=== PATIENT | female | born 1995 | race Caucasian/White ===

== ENCOUNTER 2019-07-30 11:19 | Emergency (ER) | payer BC, OTHER ==
[2019-07-30] MEDS ORDERED: NIFEdipine 10 MG CAP ONE (12:08)
[2019-07-30] MEDS ORDERED: cloNIDine HCl 0.1 MG TAB ONE (12:08)
[2019-07-30] MEDS ORDERED: ONDANSETRON 4 MG/2 ML VIAL ONE (12:08)
[2019-07-30] MEDS ORDERED: NA CHLORIDE 0.9% 500 ML ONE (12:08)
[2019-07-30 12:52] LABS: Absolute Lymphocytes (CBC) 1.2 K/uL (0.7-4.9); RBC Red Blood Cell Count 4.13 M/uL (3.86-4.86)
[2019-07-30] MEDS ORDERED: METOCLOPRAMIDE 10 MG/2mL INJ ONE (12:53)
[2019-07-30 12:56] LABS: Protime INR 1.01
[2019-07-30 12:58] LABS: Basophils % 0.6 % (0-1.3); Hematocrit 35.5 % (36.0-45.0); Lymphocytes % 7.1 % (15.3-44.8); MPV 8.5 fL (7.6-11.3)
[2019-07-30 13:13] LABS: ALT/SGPT 15 U/L (12-78); AST/SGOT 24 U/L (15-37); Albumin 4.4 g/dL (3.4-5.0); Alkaline Phosphatase 41 U/L (45-117); BUN Blood Urea Nitrogen 32 mg/dL (7-18); Bicarbonate 26 mmol/L (21-32); Bilirubin Direct 0.2 mg/dL (0-0.2); Bilirubin Total 0.6 mg/dL (0.2-1.0); Glucose Level 134 mg/dL (74-106); Potassium 3.6 mmol/L (3.5-5.1); Protein, Total 8.3 g/dL (6.4-8.2); Sodium Level 139 mmol/L (136-145)
--- NOTE | 2019-07-30 14:19 | RAD REPORT ---
EXAM DESCRIPTION: CT - Head Brain Wo Cont - 07/30/2019 2:05 pm CLINICAL HISTORY: CONFUSED Headache, drowsiness COMPARISON: No comparisonsNo comparisonsNo comparisons TECHNIQUE: All CT scans are performed using dose optimization technique as appropriate and may inclu de automated exposure control or mA/KV adjustment according to patient size. FINDINGS: Acute right thalamic hemorrhage is present measuring 26 x 18 mm.Moderate acute hemorrhage is seen extending into the ventricular system.Right to left midline shift of 6-7 mm is present. Dilat ation of the temporal horns of both ventricles suggests early hydrocephalus. Basal cisterns are also attenuated/tight. The paranasal sinuses and mastoids are clear. The calvarium is intact. IMPRESSION: Acute thalamic hemorrhage on the right (26 x 18 mm). Hemorrhage is seen extending throug hout the ventricular system with early findings of hydrocephalus. Right to left midline shift of 6-7 mm noted. The findings were discussed with CLIFF Kimbrough in the ER on 07/30/2019 at 2:15 p.m. by teleph one.
--- NOTE | 2019-07-30 14:22 | EDPHYS ---
Physician Documentation [facility] Name: Yadira Alvarez Age: 24 yrs Sex: Female : 1995 Arrival Date: 07/30/2019 Time: 11:21 Bed 8 Private MD: ED Physician Jaquan Alba HPI: 07/30 12:50 This 24 yrs old Female presents to ER via Wheelchair with complaints of kdr Passed Out Prior To Arrival. 12:50 The patient has experienced near-syncope, almost passed out, felt generally weak. kdr Onset: The symptoms/episode began/occurred suddenly, just prior to arrival, It is reported that the patient may have been intoxicated last evening by EMS. Family reports that the patient had been up and awake this morning and had gone out to breakfast. After which, she had a near syncopal episode. Now she is somnolent but responds to questions appropriately. Duration: This was a single episode. Context: the episode(s) was witnessed, by a bystander, by family, occurred at home, occurred while the patient was at rest. Associated injury: The patient did not suffer any apparent associated injury. Associated signs and symptoms: Pertinent positives: headache. Current symptoms: decreased level of consciousness, is arousable but tired. The patient has not experienced similar symptoms in the past. It is unknown whether or not the patient has recently seen a physician. The patient is a kidney transplant patient and does not report any recent complications.. Historical: - Allergies: 14:21 Zithromax; jl7 - Home Meds: 14:21 nifedipine 60 mg Oral TbER 1 tab [Active]; olmesartan oral oral [Active]; cyclosporine jl7 25 mg Oral cap [Active]; - PMHx: 14:21 FSGS Renal disease; Scoliosis; jl7 14:22 Nystagmus; jl7 - PSHx: 14:21 Kidney transplant; Rods on back; jl7 14:22 Bilateral Eyes; jl7 - Immunization history:: Adult Immunizations up to date, Adult Immunizations up to date. - Social history:: Smoking status: Patient/guardian denies using tobacco, Patient uses alcohol, patient/guardian reports recent binge of alcohol consumption. Smoking status: Patient/guardian denies using tobacco, Patient uses alcohol, occasionally. - Ebola Screening: : No symptoms or risks identified at this time No symptoms or risks identified at this time. ROS: 12:50 Constitutional: Negative for fever, chills, and weight loss, Eyes: Negative for injury, kdr pain, redness, and discharge, ENT: Negative for injury, pain, and discharge, Neck: Negative for injury, pain, and swelling, Cardiovascular: Negative for chest pain, palpitations, and edema, Respiratory: Negative for shortness of breath, cough, wheezing, and pleuritic chest pain, Abdomen/GI: Negative for abdominal pain, nausea, vomiting, diarrhea, and constipation, Back: Negative for injury and pain, : Negative for injury, bleeding, discharge, and swelling, MS/Extremity: Negative for injury and deformity, Skin: Negative for injury, rash, and discoloration, Psych: Negative for depression, anxiety, suicide ideation, homicidal ideation, and hallucinations, Allergy/Immunology: Negative for hives, rash, and allergies, Endocrine: Negative for neck swelling, polydipsia, polyuria, polyphagia, and marked weight changes, Hematologic/Lymphatic: Negative for swollen nodes, abnormal bleeding, and unusual bruising. 12:50 Neuro: Positive for altered mental status, dizziness, gait disturbance, near syncope, weakness, Negative for hearing loss, loss of consciousness, numbness, seizure activity, speech changes, tingling, tinnitus. Exam: 12:50 Constitutional: This is a well developed, well nourished patient who is somnolent but kdr otherwise not any acurte distress. Head/Face: Normocephalic, atraumatic. Eyes: Pupils equal round and reactive to light, extra-ocular motions intact. Lids and lashes normal. Conjunctiva and sclera are non-icteric and not injected. Cornea within normal limits. Periorbital areas with no swelling, redness, or edema. Neck: Trachea midline, no thyromegaly or masses palpated, and no cervical lymphadenopathy. Supple, full range of motion without nuchal rigidity, or vertebral point tenderness. No Meningismus. Chest/axilla: Normal chest wall appearance and motion. Nontender with no deformity. No lesions are appreciated. Cardiovascular: Regular rate and rhythm with a normal S1 and S2. No gallops, murmurs, or rubs. Normal PMI, no JVD. No pulse deficits. Respiratory: Lungs have equal breath sounds bilaterally, clear to auscultation and percussion. No rales, rhonchi or wheezes noted. No increased work of breathing, no retractions or nasal flaring. Abdomen/GI: Soft, non-tender, with normal bowel sounds. No distension or tympany. No guarding or rebound. No evidence of tenderness throughout. Back: No spinal tenderness. No costovertebral tenderness. Full range of motion. Skin: Warm, dry with normal turgor. Normal color with no rashes, no lesions, and no evidence of cellulitis. MS/ Extremity: Pulses equal, no cyanosis. Neurovascular intact. Full, normal range of motion. Psych: Awake, alert, with orientation to person, place and time. Behavior, mood, and affect are within normal limits. 12:50 Neuro: Orientation: unable to test. Vital Signs: 11:46 BP 240 / 115; Pulse 74; Resp 14 S; Pulse Ox 100% on R/A; iw 12:00 BP 206 / 170; Pulse 72; Resp 16; Pulse Ox 100% ; bp 13:00 BP 181 / 126; Pulse 68; Resp 24; Pulse Ox 100% ; bp 14:00 BP 154 / 89; Pulse 89; Resp 17; Pulse Ox 100% ; bp 14:09 Weight 72.57 kg; ms 15:00 BP 152 / 90; Pulse 102; Resp 22; Temp 98; Pulse Ox 100% ; bp Lino Coma Score: 14:41 Eye Response: to voice(3). Verbal Response: oriented(5). Motor Response: obeys iw commands(6). Total: 14. MDM: 14:21 Patient medically screened. kdr 14:22 Data reviewed: vital signs, nurses notes, lab test result(s), radiologic studies. kdr Counseling: I had a detailed discussion with the patient and/or guardian regarding: the historical points, exam findings, and any diagnostic results supporting the discharge/admit diagnosis, lab results, radiology results, the need to transfer to another facility. 07/30 11:53 Order name: CBC with Diff; Complete Time: 15:17 kdr 07/30 11:53 Order name: Chem 7; Complete Time: 13:51 kdr 07/30 11:53 Order name: Acetaminophen; Complete Time: 13:51 kdr 07/30 11:53 Order name: ETOH Level; Complete Time: 13:51 kdr 07/30 11:53 Order name: Hepatic Function; Complete Time: 13:51 [facility] 07/30 11:53 Order name: PT-INR; Complete Time: 13:01 [facility] 07/30 11:53 Order name: Ptt, Activated; Complete Time: 13:01 [facility] 07/30 11:53 Order name: Salicylate; Complete Time: 13:51 kdr 07/30 13:52 Order name: CT Head Brain wo Cont; Complete Time: 15:17 [facility] 07/30 15:11 Order name: CBC Smear Scan; Complete Time: 15:17 [facility] 07/30 11:53 Order name: IV Saline Lock; Complete Time: 12:16 kdr 07/30 11:53 Order name: Labs collected and sent; Complete Time: 12:49 kdr Administered Medications: 12:16 Drug: NS 0.9% 500 ml Route: IV; Rate: bolus; Site: right hand; bp 15:19 Follow up: IV Status: Infusion continued upon transfer bp 12:16 Drug: Zofran 4 mg Route: IVP; Site: right hand; bp 12:48 Follow up: Response: Nausea unchanged bp 12:48 Drug: cloNIDine 0.2 mg Route: PO; bp 14:23 Follow up: Response: Blood pressure is lowered bp 12:49 Drug: NIFEdipine 30 mg Route: PO; bp 14:24 Follow up: Response: Blood pressure is lowered bp 12:56 Drug: Reglan 10 mg Route: IVP; Site: right hand; bp 14:23 Follow up: Response: Nausea is decreased bp 14:50 Drug: CEREbyx 1 grams Route: IVPB; Site: right hand; bp 15:19 Follow up: IV Status: Completed infusion; IV Intake: 120ml bp Disposition: 07/30/19 14:21 Transfer ordered to [facility]. Diagnosis are Hypertensive heart disease, Unspecified sequelae of nontraumatic intracerebral hemorrhage, Syncope and collapse - Near. - Reason for transfer: Higher level of care. - Accepting physician is [facility]/. - Condition is Serious. - Problem is new. - Symptoms are unchanged. Signatures: Dispatcher [employer] EDMS Jaquan Alba MD MD kdr Hilda Asher, JUANITO SOLOMON iw Cristiane Adams RN RN jl7 Matthew Louie RN RN bp Corrections: (The following items were deleted from the chart) 15:20 14:21 07/30/2019 14:21 Transfer ordered to [facility]. Diagnosis is bp Hypertensive heart disease. Reason for transfer: Higher level of care. Accepting physician is [facility]. Condition is Serious. Problem is new. Symptoms are unchanged. kdr 15:42 15:20 07/30/2019 14:21 Transfer ordered to [facility]. Diagnosis is kdr Hypertensive heart disease. Reason for transfer: Higher level of care. Accepting physician is [facility]. Condition is Serious. Problem is new. Symptoms are unchanged. bp 15:44 15:42 07/30/2019 14:21 Transfer ordered to [facility]. Diagnosis is iw Hypertensive heart disease; Unspecified sequelae of nontraumatic intracerebral hemorrhage; Syncope and collapse - Near. Reason for transfer: Higher level of care. Accepting physician is [facility]. Condition is Serious. Problem is new. Symptoms are unchanged. kdr
--- NOTE | 2019-07-30 14:22 | ER ---
Nurse's Notes [facility] Name: Yadira Alvarez Age: 24 yrs Sex: Female : 1995 Arrival Date: 07/30/2019 Time: 11:21 Bed 8 Private MD: Diagnosis: Hypertensive heart disease;Unspecified sequelae of nontraumatic intracerebral hemorrhage;Syncope and collapse-Near Presentation: 07/30 11:26 Presenting complaint: Mother states: pt was drinking heavily last night, went to [place] and to [place] this morning, felt very nauseous and passed out while at [facility], pt appears drowsy, able to stand with assistance, unable to walk to bed, vomiting mucous, hx of renal failure, currently on kidney transplant list. Transition of care: patient was not received from another setting of care. Onset of symptoms was July 30, 2019. Risk Assessment: Do you want to hurt yourself or someone else? Patient reports no desire to harm self or others. 11:26 Method Of Arrival: Wheelchair 11:26 Acuity: KRISTAL 2 iw 11:39 Initial Sepsis Screen: Does the patient meet any 2 criteria? No. Patient's initial sepsis screen is negative. Does the patient have a suspected source of infection? No. Patient's initial sepsis screen is negative. Care prior to arrival: None. Triage Assessment: 11:38 General: Appears in no apparent distress. comfortable, obese, Behavior is cooperative, bp drowsy, listless. Pain: Denies pain. EENT: No deficits noted. Neuro: Level of Consciousness is lethargic, Oriented to person, place, time, situation, Appropriate for age. Cardiovascular: Rhythm is sinus rhythm. Respiratory: No deficits noted. GI: No signs and/or symptoms were reported involving the gastrointestinal system. : No signs and/or symptoms were reported regarding the genitourinary system. Derm: No deficits noted. Musculoskeletal: No deficits noted. Historical: - Allergies: 14:21 Zithromax; jl7 - Home Meds: 14:21 nifedipine 60 mg Oral TbER 1 tab [Active]; olmesartan oral oral [Active]; cyclosporine jl7 25 mg Oral cap [Active]; - PMHx: 14:21 FSGS Renal disease; Scoliosis; jl7 14:22 Nystagmus; jl7 - PSHx: 14:21 Kidney transplant; Rods on back; jl7 14:22 Bilateral Eyes; jl7 - Immunization history:: Adult Immunizations up to date, Adult Immunizations up to date. - Social history:: Smoking status: Patient/guardian denies using tobacco, Patient uses alcohol, patient/guardian reports recent binge of alcohol consumption. Smoking status: Patient/guardian denies using tobacco, Patient uses alcohol, occasionally. - Ebola Screening: : No symptoms or risks identified at this time No symptoms or risks identified at this time. Screenin:40 Abuse screen: Denies threats or abuse. Denies injuries from another. Nutritional bp screening: No deficits noted. Tuberculosis screening: No symptoms or risk factors identified. Fall Risk None identified. Assessment: 11:40 General: SEE TRIAGE NOTE. bp 12:00 Reassessment: PT ACTIVELY VOMITING, MD NOTIFIED. bp 14:00 Reassessment: MD NOTIFIED OF CRITICAL RADIOLOGY FINDING, CENTRAL THALAMUS HEMORRHAGE bp WITH 6MM MIDLINE SHIFT. 15:02 Reassessment: REPORT CALLED TO MARIFER SOLOMON AT [facility]. bp 15:17 Reassessment: [facility] FOR PT TRANSPORT. bp Vital Signs: 11:46 BP 240 / 115; Pulse 74; Resp 14 S; Pulse Ox 100% on R/A; iw 12:00 BP 206 / 170; Pulse 72; Resp 16; Pulse Ox 100% ; bp 13:00 BP 181 / 126; Pulse 68; Resp 24; Pulse Ox 100% ; bp 14:00 BP 154 / 89; Pulse 89; Resp 17; Pulse Ox 100% ; bp 14:09 Weight 72.57 kg; ms 15:00 BP 152 / 90; Pulse 102; Resp 22; Temp 98; Pulse Ox 100% ; bp Lino Coma Score: 14:41 Eye Response: to voice(3). Verbal Response: oriented(5). Motor Response: obeys iw commands(6). Total: 14. ED Course: 11:21 Patient arrived in ED. mr 11:23 Matthew Louie, JUANITO is Primary Nurse. bp 11:25 Jaquan Alba MD is Attending Physician. kdr 11:39 Triage completed. iw 11:39 Arm band placed on Patient placed in an exam room, on pulse oximetry. iw 11:40 Patient has correct armband on for positive identification. Bed in low position. Call bp light in reach. Side rails up X2. 12:15 Inserted saline lock: 22 gauge in right hand, using aseptic technique. Blood collected. bp 14:05 CT Head Brain wo Cont In Process Unspecified. EDMS 14:[address]. ka 15:17 No provider procedures requiring assistance completed. Patient transferred, IV remains bp in place. Administered Medications: 12:16 Drug: NS 0.9% 500 ml Route: IV; Rate: bolus; Site: right hand; bp 15:19 Follow up: IV Status: Infusion continued upon transfer bp 12:16 Drug: Zofran 4 mg Route: IVP; Site: right hand; bp 12:48 Follow up: Response: Nausea unchanged bp 12:48 Drug: cloNIDine 0.2 mg Route: PO; bp 14:23 Follow up: Response: Blood pressure is lowered bp 12:49 Drug: NIFEdipine 30 mg Route: PO; bp 14:24 Follow up: Response: Blood pressure is lowered bp 12:56 Drug: Reglan 10 mg Route: IVP; Site: right hand; bp 14:23 Follow up: Response: Nausea is decreased bp 14:50 Drug: CEREbyx 1 grams Route: IVPB; Site: right hand; bp 15:19 Follow up: IV Status: Completed infusion; IV Intake: 120ml bp Intake: 15:19 IV: 120ml; Total: 120ml. bp Outcome: 14:21 ER care complete, transfer ordered by . kdr 15:18 Transferred by ground EMS by helicopter to [facility], Transfer form bp completed. 15:18 critical 15:18 Instructed on the need for transfer. 15:20 Patient left the ED. bp 15:44 Patient left the ED. iw Signatures: Dispatcher [employer] EDMS Jaquan Alba MD MD kdr Rivera, Luz mr Hilda Asher, RN RN clifford Scanlon, Fifi ms Mukund, Cristiane Ziegler RN RN jlMatthew Hogan RN RN bp
[2019-07-30] MEDS ORDERED: FOSPHENYTOIN PE 1,000 MG in NA CHLORIDE 0.9% 100 ML IV ONE (15:00)
[2019-07-30 15:11] LABS: Blood Morphology Comment NOT SEEN (NOT SEEN); Platelet Estimate ADEQ; Urine White Blood Cell Casts OK
[2019-07-30 15:50] VITALS: O2SAT 100
[2019-07-30 15:55] VITALS: BP 152/90; TEMP 98
== END 2019-07-30 15:44 | disposition short-term general hospital (02) ==
LOC: ER 11:19
DX: I11.9 Hypertensive heart disease without heart failure (principal); I69.10 Unspecified sequelae of nontraumatic intracerebral hemorrhage; R55 Syncope and collapse; Z94.0 Kidney transplant status; Z88.1 Allergy status to other antibiotic agents
CPT/HCPCS: 96365; 96361; 85025; 80048; 36415; 80320; 80329 ×2; 85610; 82962; 80076; 85730; 70450; 96375; 99285; J2765; Q2009; J7040; J2405